=== PATIENT | male | born 1965 | race Caucasian/White ===

== ENCOUNTER 2016-07-16 19:21 | Emergency (ER) | payer OTHER ==
[2016-07-16 20:17] LABS: #Basophils 0.2 thou/uL (0.0-0.2); #Eosinphils 0.3 thou/uL (0.0-0.7); #Lymphocytes 2.5 thou/uL (1.20-3.40); #Monocytes 1.2 thou/uL (0.11-0.59); #Neutrophils 7.7 thou/uL (1.40-6.50); %Basophils 1.6 % (0.0-1.0); %Eosinophils 2.4 % (0.0-10.0); %Lymphocytes 20.8 % (21.0-51.0); %Monocytes 10.3 % (0.0-10.0); %Neutrophils 64.9 % (42.0-75.0); Hemoglobin 16.2 g/dL (14.0-18.0); Mean Corpuscular HGB CONC 33.9 g/dL (32.0-36.0); Mean Corpuscular Hemoglobin 31.4 pg (27.0-31.0); Mean Corpuscular Volume 92.6 fl (80.0-94.0); Mean Platelet Volume 6.8 fL (7.4-10.4); Platelet Count 356 thou/uL (130-400); RBC Distribution Width 12.7 % (11.5-14.5); Red Blood Cell (RBC) Count 5.15 mill/uL (4.70-6.10); White Blood Cell (WBC) Count 11.8 thou/uL (4.8-10.8)
[2016-07-16 20:27] LABS: ALT (SGPT) 44 U/L (8-55); AST (SGOT) 31 U/L (5-34); Albumin 4.3 g/dL (3.5-5.0); Alkaline Phosphatase 49 U/L (40-150); Anion Gap 15 mmol/L (10-20); BUN (Urea Nitrogen) 16 mg/dL (8.9-20.6); Bilirubin, Total 0.6 mg/dL (0.2-1.2); Calc. Creatinine Clearance 0 mL/min (70-130); Calcium 9.2 mg/dL (7.8-10.44); Carbon Dioxide 24 mmol/L (22-29); Chloride 108 mmol/L (98-107); Estimated GFR-MDRD 59; Globulin 2.5 g/dL (2.4-3.5); Glucose 122 mg/dL (70-105); Potassium 3.9 mmol/L (3.5-5.1); Protein, Total 6.8 g/dL (6.0-8.3); Sodium 143 mmol/L (136-145)
[2016-07-16] MEDS ORDERED: Adacel (T-DAP) 0.5 ML VIAL ONE (21:10)
--- NOTE | 2016-07-16 21:48 | RAD ---
PORTABLE CHEST 07/16/16 An AP portable film at 1943 is presented with no prior films available for comparison. The heart is normal in size for age, body habitus and AP projection. There is no mediastinal widenin g or shift. The lungs seem fully inflated and clear. There are no pulmonary infiltrates or effusions . No gross fractures were identified, though sensitivity to subtle rib fractures would probably be l ow. IMPRESSION: No acute thoracic findings. POS: HOME
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
--- NOTE | 2016-07-16 22:14 | RAD ---
RIGHT FOOT THREE VIEWS 07/16/16 No fracture was seen. All bones currently appear intact. IMPRESSION: No acute findings. POS: HOME
== END 2016-07-16 22:17 | disposition home or self-care (01) ==
LOC: BURERS 19:21
DX: S91.311A Laceration without foreign body, right foot, initial encounter (principal); W55.19XA Other contact with horse, initial encounter
CPT/HCPCS: 12041; 71010; 71250; 74177; 80053; 85025; 86850; 86900; 86901; 90471; 90715; J2001